=== PATIENT | male | born 1950 | race Caucasian/White ===

== ENCOUNTER 2017-05-15 17:24 | Observation (INO) ==
[2017-05-15] MEDS ORDERED: ACETAMINOPHEN 325 MG TABLET PO ONE (17:49)
--- NOTE | 2017-05-15 17:51 | Emergency Department Note ---
Fever HPI - General Chief Complaint: Fever Stated Complaint: Fever Time Seen by Provider: 05/15/17 17:34 Source: patient Mode of arrival: ambulatory Limitations: no limitations - History of Present Illness HPI Narrative: 66-year-old male presents with fever. He had an endoscopy done today due to a GI bleed and aspirated during his procedure. He had a chest x-ray earlier and it was clear that they told him to make sure that if he had a fever to come back. He denies any nausea vomiting or any more black stools. He has not vomited at all. He feels crummy and lethargic. He denies any chest pain or shortness of breath. He has been coughing but has not coughed anything up. He states the chills have gotten better and they started a few hours ago. No other symptoms. - Related Data Home Medications Medication Instructions Recorded Confirmed Aspirin [[place] Aspirin] 81 mg PO DAILY 04/19/15 05/15/17 Gluc Moya/Chondro Moya A/Vit C/Mn 1 each PO DAILY 04/19/15 05/15/17 [Glucosamine 1,500 Complex Cp] Irbesartan [Avapro] 300 mg PO DAILY 04/19/15 05/15/17 Irbesartan/Hydrochlorothiazide 1 each PO DAILY 04/19/15 05/15/17 [Avalide 150-12.5 mg Tablet] Magnesium Oxide [Magox 400] 400 mg PO DAILY 04/19/15 05/15/17 Potassium Citrate [Potassium 10 meq PO DAILY 04/19/15 05/15/17 Citrate ER] Ranitidine HCl [Zantac] 300 mg PO QHS 05/14/17 05/15/17 Allergies Allergy/AdvReac Type Severity Reaction Status Date / Time Latex, Natural Rubber Allergy Mild Rash Verified 05/15/17 17:29 Sulfa (Sulfonamide AdvReac Mild Itching Verified 05/15/17 17:29 Antibiotics) Review of Systems All systems ED: reviewed and negative except as stated. Fever PMH - Past Medical History Medical history: Reports: GI bleed (upper) Surgical history ED: Reports: other (EGD) Psychiatric history: Reports: no psych history Family history: Reports: no significant family history - Social History smoking status: Never smoker Physical Exam Limitations: no limitations General appearance: alert, in no apparent distress Head: atraumatic Eye: Present: normal appearance. Absent: conjunctival injection Neck: Present: normal inspection, full ROM Chest: Present: normal inspection, symmetric chest wall rise Respiratory: Present: normal lung sounds bilaterally Cardiovascular: Present: tachycardia, normal heart sounds Abdominal: Present: soft, normal bowel sounds. Absent: tenderness Extremities: Present: normal inspection, full ROM Neurological: Present: alert, oriented X3 Psychiatric: Present: normal affect, normal mood Skin: Present: warm, dry, intact Course Course Narrative: He will be admitted for further evaluation and monitoring Given IV fluids and Zosyn Vital Signs Temperature 100.8 F H 05/15/17 17:25 Pulse Rate 123 H 05/15/17 17:25 Respiratory Rate 20 05/15/17 17:25 Blood Pressure 143/89 05/15/17 17:25 Pulse Oximetry (%) 96 05/15/17 17:25 Temperature 98.8 F 05/15/17 20:51 Pulse Rate 105 H 05/15/17 20:51 Respiratory Rate 16 05/15/17 20:51 Blood Pressure 138/91 05/15/17 20:51 Pulse Oximetry (%) 98 05/15/17 20:51 Fever - Lab Data Lab results reviewed: Yes I reviewed the patient's lab results. Result diagrams: 05/15/17 18:10 05/15/17 18:10 Lab Results 05/15/17 05/15/17 05/15/17 Range/Units 18:03 18:10 18:10 WBC 19.3 H (4.5-11.0) K/mcL RBC 4.86 (4.50-5.90) M/mcL Hgb 14.8 (13.5-16.5) g/dL Hct 43.8 (41.0-55.0) % MCV 90.1 (80.0-100.0) fL MCH 30.5 (26.0-34.0) pg MCHC 33.8 (31.0-36.0) g/dL RDW 13.5 (11.5-14.5) % Plt Count 240 (140-440) K/mcL MPV 9.4 (7.4-10.4) fL Total Counted 100 Seg Neutrophils % 91 H (38-78) % Band Neutrophils % 3 (0-10) % Lymphocytes % 2 L (15-49) % Monocytes % (Manual) 3 (1-12) % Metamyelocytes % 1 H (0-0) % Platelet Estimate Normal (NORMAL) RBC Morphology Normal (NORMAL) VBG Lactic Acid 3.0 H (0.5-2.2) mmol/L Sodium 137 (133-145) mmol/L Potassium 3.6 (3.3-5.1) mmol/L Chloride 98 (96-108) mmol/L Carbon Dioxide 23 (22-30) mmol/L Anion Gap 16.0 (8-16) BUN 31 H (8-23) mg/dl Creatinine 1.5 H (0.7-1.2) mg/dl GFR Calculation 47 Glucose 179 H (70-105) mg/dL Calcium 9.2 (8.6-10.4) mg/dl Total Bilirubin 0.4 (0.0-1.0) mg/dL AST 23 (0-37) U/l ALT 22 (0-40) U/l Alkaline Phosphatase 51 (39-117) U/L Troponin T (0-0.03) ng/ml Total Protein 7.0 (5.9-8.4) gm/dL Albumin 4.4 (3.2-5.2) gm/dL Globulin 2.6 (2.2-3.7) gm/dL Albumin/Globulin Ratio 1.7 (1.0-2.3) Urine Color Urine Appearance Urine pH (5.0-9.0) Ur Specific [place] (1.000-1.035) Urine Protein (NEG) mg/dL Urine Glucose (UA) (NEG) mg/dL Urine Ketones (NEG) mg/dL Urine Occult Blood (<0.03) mg/dL Urine Nitrate (NEG) Urine Bilirubin (NEG) mg/dL Urine Urobilinogen (NEG) mg/dL Ur Leukocyte Esterase (NEG) /uL Urine RBC (0-1) /hpf Urine WBC (0-4) /hpf Ur Squamous Epith Cells (0-4) /hpf Urine Bacteria (0) /hpf Urine Mucus (0) /hpf Ur Culture Indicated? 05/15/17 05/15/17 Range/Units 18:10 19:10 WBC (4.5-11.0) K/mcL RBC (4.50-5.90) M/mcL Hgb (13.5-16.5) g/dL Hct (41.0-55.0) % MCV (80.0-100.0) fL MCH (26.0-34.0) pg MCHC (31.0-36.0) g/dL RDW (11.5-14.5) % Plt Count (140-440) K/mcL MPV (7.4-10.4) fL Total Counted Seg Neutrophils % (38-78) % Band Neutrophils % (0-10) % Lymphocytes % (15-49) % Monocytes % (Manual) (1-12) % Metamyelocytes % (0-0) % Platelet Estimate (NORMAL) RBC Morphology (NORMAL) VBG Lactic Acid (0.5-2.2) mmol/L Sodium (133-145) mmol/L Potassium (3.3-5.1) mmol/L Chloride (96-108) mmol/L Carbon Dioxide (22-30) mmol/L Anion Gap (8-16) BUN (8-23) mg/dl Creatinine (0.7-1.2) mg/dl GFR Calculation Glucose (70-105) mg/dL Calcium (8.6-10.4) mg/dl Total Bilirubin (0.0-1.0) mg/dL AST (0-37) U/l ALT (0-40) U/l Alkaline Phosphatase (39-117) U/L Troponin T < 0.01 (0-0.03) ng/ml Total Protein (5.9-8.4) gm/dL Albumin (3.2-5.2) gm/dL Globulin (2.2-3.7) gm/dL Albumin/Globulin Ratio (1.0-2.3) Urine Color Straw Urine Appearance Clear Urine pH 5.0 (5.0-9.0) Ur Specific [place] 1.019 (1.000-1.035) Urine Protein Neg (NEG) mg/dL Urine Glucose (UA) Negative (NEG) mg/dL Urine Ketones Neg (NEG) mg/dL Urine Occult Blood Neg (<0.03) mg/dL Urine Nitrate Neg (NEG) Urine Bilirubin Neg (NEG) mg/dL Urine Urobilinogen Neg (NEG) mg/dL Ur Leukocyte Esterase Neg (NEG) /uL Urine RBC 0 (0-1) /hpf Urine WBC < 1 (0-4) /hpf Ur Squamous Epith Cells 0 (0-4) /hpf Urine Bacteria 0 (0) /hpf Urine Mucus Few (0) /hpf Ur Culture Indicated? No - Radiology Data Radiology results reviewed: Yes I reviewed the patient's radiology results. No interval change - EKG Data EKG attestation: Yes I reviewed and interpreted this EKG. EKG results narrative: Sinus tachycardia, short NV interval, No signs of ischemia. It does read it as ischemia but Dr. Mistry and I reviewed it and do not agree. He has no symptoms at all of chest pain or shortness of breath Disposition Pt seen by DIRECTOR OF CASEWORK/PA only: Yes Clinical Impression: Sepsis, Fever postop Disposition: Xfer As Inpt ([facility]) Condition: Fair
[2017-05-15] MEDS ORDERED: 0.9 % SODIUM CHLORIDE 1,000 ML IV ONE (17:52)
[2017-05-15] MEDS ORDERED: PIPERACILLIN SODIUM/TAZOBACTAM 3.375 GM in DEXTROSE 5% IN WATER 50 ML IV ONE (18:23)
[2017-05-15 18:41] LABS: Mean Cell Volume 90.1 fL (80.0-100.0); Mean Corpuscular HGB Conc 33.8 g/dL (31.0-36.0); Mean Corpuscular Hemoglobin 30.5 pg (26.0-34.0); Platelet Count 240 K/mcL (140-440); RBC 4.86 M/mcL (4.50-5.90); Red Cell Distribution Width 13.5 % (11.5-14.5)
[2017-05-15] MEDS ORDERED: PIPERACILLIN SODIUM/TAZOBACTAM 3.375 GM VIAL IV ONE (18:41)
--- NOTE | 2017-05-15 18:41 | XRay Report ---
INDICATION: Previous endoscopy. Chest pain. TECHNIQUE: PA and lateral upright chest x-ray COMPARISON: 05/15/2017, 1225. FINDINGS:Lungs are negative. No parenchymal infiltrate or mass. No focal abnormality. Heart size and mediastinum are normal. Vascularity is normal. No pneumomediastinum. No pneumothorax. No pleural fluid. IMPRESSION: 1. Negative PA and lateral chest x-ray. 2. No interval change since 05/15/2017, 1225. Interpreted and Authenticated by: Jose Selby 05/15/17
[2017-05-15 19:00] LABS: ALT/SGPT 22 U/l (0-40); Albumin 4.4 gm/dL (3.2-5.2); Albumin/Globulin Ratio 1.7 (1.0-2.3); Alkaline Phosphatase 51 U/L (39-117); Blood Urea Nitrogen 31 mg/dl (8-23)
[2017-05-15 19:08] LABS: Band Neutrophils % 3 % (0-10); Lymphocytes % 2 % (15-49); Metamyelocytes % 1 % (0-0); Monocytes % (Manual) 3 % (1-12); Platelet Estimate NORMAL (NORMAL); RBC Morphology NORMAL (NORMAL); Segmented Neutrophils % 91 % (38-78)
[2017-05-15 20:19] LABS: Appearance,Urine CLEAR; Bacteria,Urine 0 /hpf (0); Bilirubin,Urine NEG (NEG); Color,Urine STRAW; Glucose,Urine (UA) NEGATIVE (NEG); Leukocyte Esterase,Urine NEG /uL (NEG); Mucus,Urine FEW /hpf (0); Nitrate,Urine NEG (NEG); Protein,Urine NEG (NEG); Specific Gravity,Urine 1.019 (1.000-1.035); Urine Blood NEG mg/dL (<0.03); Urine RBC 0 /hpf (0-1); Urine Squamous Epithelial Cell 0 /hpf (0-4); Urine WBC < 1 /hpf (0-4); Urobilinogen,Urine NEG (NEG)
[2017-05-15] MEDS ORDERED: ONDANSETRON 4 MG/2 ML VIAL IV PRN (20:54)
[2017-05-15] MEDS ORDERED: ACETAMINOPHEN 325 MG TABLET PO PRN (20:54)
[2017-05-15] MEDS: 0.9 % SODIUM CHLORIDE 10 ML SYRINGE IV SCH (23:42)
--- NOTE | 2017-05-15 23:42 | Internal Med History&Physical ---
Medical - H&P: HPI Patient information: Note initiated : 05/15/17 at 11:42 pm Service Date, if different from initiated Date: [] Patient: Vipul Amaral 66 y/o M admitted on 05/15/17 for Fever. Chief Complaint: weakness and fever 66-year-old male, s/p EGD to address melena after routine EGD with gastric polyp removal the day prior. Patient reportedly had emesis when he was sedated. After the procedure he felt weak and had subjective fever and some coughing. Patient has longstanding complaints of GERD and has been on omeprazole, recently switched to ranitidine, for many years. He is doing well otherwise, denies CP, SOB, problems with voiding or BMs. History of present illness: Mr. Amaral is a 66 year old M All systems: reviewed and no additional remarkable complaints except as stated Medical - H&P: PMH Medical history: GERD, PROSTATE CANCER Functional capacity: independent ambulation Smoking status: Never smoker Drug use: none Alcohol use: rarely Medical - H&P: Meds Home Medications Medication Instructions Recorded Confirmed Type Aspirin [[place] Aspirin] 81 mg PO DAILY 04/19/15 05/15/17 History Gluc Moya/Chondro Moya A/Vit C/Mn 1 tab PO DAILY 04/19/15 05/15/17 History [Glucosamine 1,500 Complex Cp] Magnesium Oxide [Magox 400] 400 mg PO DAILY 04/19/15 05/15/17 History Potassium Citrate [Potassium 10 meq PO DAILY 04/19/15 05/15/17 History Citrate ER] Ranitidine HCl [Zantac] 300 mg PO DAILY 05/14/17 05/15/17 History Cholecalciferol (Vitamin D3) 4,000 unit PO DAILY 05/15/17 05/15/17 History [Vitamin D3] Garlic [Odor Free Garlic-X] 1 each PO DAILY 05/15/17 05/15/17 History Irbesartan-Hctz 300-12.5 mg Tb 1 tab PO DAILY 05/15/17 05/15/17 History RX: Multivitamin [One Daily] 1 tab PO DAILY 05/15/17 05/15/17 History Allergies Allergy/AdvReac Type Severity Reaction Status Date / Time ciprofloxacin Allergy Severe Other Verified 05/15/17 21:06 Latex, Natural Rubber Allergy Mild Rash Verified 05/15/17 17:29 Sulfa (Sulfonamide AdvReac Mild Itching Verified 05/15/17 17:29 Antibiotics) Medical - H&P: Exam - Constitutional Vitals: Temp Pulse Resp BP Pulse Ox 98.8 F 105 H 16 138/91 98 05/15/17 20:51 05/15/17 20:51 05/15/17 20:51 05/15/17 20:51 05/15/17 20:51 General appearance: no acute distress - Head Head exam: Present: normal inspection - Eye Eye exam: Present: EOMI, PERRL - Respiratory Respiratory exam: Present: normal respiratory exam - Cardiovascular Cardiovascular exam: Present: normal rate and rhythm - GI/Abdominal GI/Abdominal exam: Present: normal bowel sounds, soft - Rectal Rectal exam: Present: deferred - Extremities Exam Extremities exam: Present: normal inspection Medical - H&P: Reslt - Labs CBC & Chem 7: 05/15/17 18:10 05/15/17 18:10 Labs: Short CBC 05/15/17 Range/Units 18:10 WBC 19.3 H (4.5-11.0) K/mcL Hgb 14.8 (13.5-16.5) g/dL Hct 43.8 (41.0-55.0) % Plt Count 240 (140-440) K/mcL BMP 05/15/17 18:10 Sodium 137 Potassium 3.6 Chloride 98 Carbon Dioxide 23 BUN 31 H Creatinine 1.5 H Glucose 179 H Calcium 9.2 Cardiac Enzymes 05/15/17 Range/Units 18:10 Troponin T < 0.01 (0-0.03) ng/ml Liver Function 05/15/17 Range/Units 18:10 Total Bilirubin 0.4 (0.0-1.0) mg/dL AST 23 (0-37) U/l ALT 22 (0-40) U/l Alkaline Phosphatase 51 (39-117) U/L Albumin 4.4 (3.2-5.2) gm/dL Urine 05/15/17 Range/Units 19:10 Urine Color Straw Urine Appearance Clear Urine pH 5.0 (5.0-9.0) Ur Specific [place] 1.019 (1.000-1.035) Urine Protein Neg (NEG) mg/dL Urine Glucose (UA) Negative (NEG) mg/dL Medical - H&P: A/P - Narrative A/P Narrative: 66-YEAR-OLD MALE PRESENTED 05/15 WITH THE FOLLOWING PROBLEMS: + ASPIRATION PNEUMONITIS/PNEUMONIA Bloody emesis during EGD procedure Started on Zosyn in ED. Will continue as Unasyn in not in formulary + GERD continue Ranitidine + GASTRIC POLYPS Incidental finding on routine EGD 05/14, Biopsy result pending + Hx of prostate cancer stable DISPO: d/c home in am when stable Medical - H&P: Qual - Stroke Symptom Onset Unknown: No - VTE Deep Vein Thrombosis/Pulmonary Embolism Present on Admission: No
[2017-05-16] MEDS ORDERED: PIPERACILLIN SODIUM/TAZOBACTAM 3.375 GM in DEXTROSE 5% IN WATER 50 ML IV SCH
[2017-05-16 04:56] LABS: Mean Cell Volume 91.7 fL (80.0-100.0); Mean Corpuscular HGB Conc 33.7 g/dL (31.0-36.0); Mean Corpuscular Hemoglobin 30.9 pg (26.0-34.0); Platelet Count 202 K/mcL (140-440); RBC 4.18 M/mcL (4.50-5.90); Red Cell Distribution Width 13.3 % (11.5-14.5)
[2017-05-16] MEDS: 0.9 % SODIUM CHLORIDE 10 ML SYRINGE IV SCH (05:58)
[2017-05-16 06:08] LABS: Blood Urea Nitrogen 24 mg/dl (8-23)
[2017-05-16 06:23] LABS: Band Neutrophils % 8 % (0-10); Eosinophils % (Manual) 2 % (0-7); Lymphocytes % 11 % (15-49); Monocytes % (Manual) 7 % (1-12); Platelet Estimate NORMAL (NORMAL); RBC Morphology NORMAL (NORMAL); Segmented Neutrophils % 72 % (38-78)
[2017-05-16] MEDS ORDERED: POTASSIUM CITRATE 10 MEQ TAB.XL.24H PO SCH (08:00)
[2017-05-16] MEDS ORDERED: ASPIRIN 81 MG TAB.CHEW PO SCH (09:00)
[2017-05-16] MEDS ORDERED: LOSARTAN 50 MG TABLET PO SCH (09:00)
[2017-05-16] MEDS ORDERED: MAGNESIUM OXIDE 400 MG TABLET PO SCH (09:00)
--- NOTE | 2017-05-16 13:37 | Discharge Summary ---
Medical - DS: Prov Patient information: Note initiated : 05/16/17 at 1:33 pm Service Date, if different from initiated Date: [] Patient: Vipul Amaral 66 y/o M admitted on 05/15/17 for Fever. Date of admission: 05/15/17 20:48 Discharge date: 05/16/17 Consults: 05/15/17 19:37 Consult to Physician [CONS] Stat Comment: Consulting Provider: Padmini Maher Reason For Exam: Physician to Consult Medical - DS: Meds - Discharge Medications Active and Home Medications: Home Medications Aspirin [[place] Aspirin] 81 mg PO DAILY 04/19/15 [History Confirmed Last Taken 05/15/17 08:00] Gluc Moya/Chondro Moya A/Vit C/Mn [Glucosamine 1,500 Complex Cp] 1 tab PO DAILY [History Confirmed 05/15/17 Last Taken 05/15/17 08:00] Magnesium Oxide [Magox 400] 400 mg PO DAILY 04/19/15 [History Confirmed Last Taken 05/15/17 08:00] Potassium Citrate [Potassium Citrate ER] 10 meq PO DAILY 04/19/15 [History Confirmed 05/15/17 Last Taken 05/15/17 08:00] Ranitidine HCl [Zantac] 300 mg PO DAILY 05/14/17 [History Confirmed 05/15/17 Last Taken 05/15/17 08:00] Cholecalciferol (Vitamin D3) [Vitamin D3] 4,000 unit PO DAILY 05/15/17 [History Confirmed 05/15/17 Last Taken 05/15/17 08:00] Garlic [Odor Free Garlic-X] 1 each PO DAILY 05/15/17 [History Confirmed Last Taken 05/15/17 08:00] Irbesartan-Hctz 300-12.5 mg Tb 1 tab PO DAILY 05/15/17 [History Confirmed Last Taken 05/15/17 08:00] RX: Multivitamin [One Daily] 1 tab PO DAILY 05/15/17 [History Confirmed Last Taken 05/15/17 08:00] Medical - DS: Hosp Hospital course: 66-YEAR-OLD MALE PRESENTED 05/15 WITH THE FOLLOWING PROBLEMS: + ASPIRATION PNEUMONITIS/PNEUMONIA Bloody emesis during EGD procedure Started on Zosyn in ED. + GERD continue Ranitidine + GASTRIC POLYPS Incidental finding on routine EGD 05/14, Biopsy result pending + Hx of prostate cancer stable Hospital course: Patient has remained stable and afebrile during hospital stay and he feels that he is 'back to normal'. WBC down to 13 from 19. He will be discharged on Augmentin and to continue his usual meds. Discharge diagnosis: ASPIRATION PNEUMONITIS Secondary discharge diagnosis: GERD Reason for admission: ASPIRATION PNEUMONITIS FOLLOWING EGD - Time Spent with Patient Total time spent providing and/or coordinating discharge services: Less than 30 minutes Medical - DS: Exam - Constitutional Vitals: Vital Signs Temp Pulse Pulse Resp BP BP BP 05/16/17 12:00 97.6 F 16 120/78 05/16/17 06:31 98.5 F 16 122/73 05/16/17 03:58 98.1 F 80 18 119/74 05/15/17 23:47 98.6 F 92 H 18 131/70 05/15/17 20:51 98.8 F 105 H 16 138/91 05/15/17 20:50 98.5 F 99 H 18 131/83 05/15/17 20:36 105 H 16 138/91 05/15/17 20:01 103 H 14 139/96 05/15/17 19:35 98.8 F 05/15/17 19:31 104 H 14 128/81 05/15/17 19:13 98.5 F 05/15/17 19:10 110 H 18 120/79 05/15/17 19:05 110 H 17 148/111 05/15/17 18:28 100.8 F H 05/15/17 17:25 100.8 F H 123 H 20 143/89 Pulse Ox 05/16/17 12:00 95 05/16/17 06:31 97 05/16/17 03:58 95 05/15/17 23:47 95 05/15/17 20:51 98 05/15/17 20:50 98 05/15/17 20:36 98 05/15/17 20:01 98 05/15/17 19:35 05/15/17 19:31 96 05/15/17 19:13 05/15/17 19:10 94 05/15/17 19:05 94 05/15/17 18:28 05/15/17 17:25 96 Intake and Output 05/15/17 05/16/17 05/16/17 21:59 05:59 13:59 Intake Total 1000 / 1000 770 / 770 Output Total 825 / 825 200 / 200 Balance 1000 / 1000 -55 / -55 -200 / -200 Intake: IV 1000 / 1000 50 / 50 Zosyn 3.375 gm In Dextrose 5% 50 / 50 in Water 50 ml @ 100 mls/hr IV Q6H RAEANN Rx#:[id number] Oral 720 / 720 Output: Void Amount 825 / 825 200 / 200 Other: # Voids 2 1 Weight 229 lb 8 oz Medical - DS: Data Labs on day of discharge: Labs from last 24 hours 05/16/17 05/16/17 05/15/17 03:57 03:57 19:10 WBC 13.9 H RBC 4.18 L Hgb 12.9 L Hct 38.3 L MCV 91.7 MCH 30.9 MCHC 33.7 RDW 13.3 Plt Count 202 MPV 9.6 Total Counted 100 Seg Neutrophils % 72 Band Neutrophils % 8 Lymphocytes % 11 L Monocytes % (Manual) 7 Eosinophils % (Manual) 2 Metamyelocytes % Platelet Estimate Normal RBC Morphology Normal VBG Lactic Acid Sodium 140 Potassium 3.7 Chloride 102 Carbon Dioxide 22 Anion Gap 16.0 BUN 24 H Creatinine 1.2 GFR Calculation 62 Glucose 120 H Calcium 8.4 L Total Bilirubin AST ALT Alkaline Phosphatase Troponin T Total Protein Albumin Globulin Albumin/Globulin Ratio Urine Color Straw Urine Appearance Clear Urine pH 5.0 Ur Specific [place] 1.019 Urine Protein Neg Urine Glucose (UA) Negative Urine Ketones Neg Urine Occult Blood Neg Urine Nitrate Neg Urine Bilirubin Neg Urine Urobilinogen Neg Ur Leukocyte Esterase Neg Urine RBC 0 Urine WBC < 1 Ur Squamous Epith Cells 0 Urine Bacteria 0 Urine Mucus Few Ur Culture Indicated? No 05/15/17 05/15/17 05/15/17 18:10 18:10 18:10 WBC 19.3 H RBC 4.86 Hgb 14.8 Hct 43.8 MCV 90.1 MCH 30.5 MCHC 33.8 RDW 13.5 Plt Count 240 MPV 9.4 Total Counted 100 Seg Neutrophils % 91 H Band Neutrophils % 3 Lymphocytes % 2 L Monocytes % (Manual) 3 Eosinophils % (Manual) Metamyelocytes % 1 H Platelet Estimate Normal RBC Morphology Normal VBG Lactic Acid Sodium 137 Potassium 3.6 Chloride 98 Carbon Dioxide 23 Anion Gap 16.0 BUN 31 H Creatinine 1.5 H GFR Calculation 47 Glucose 179 H Calcium 9.2 Total Bilirubin 0.4 AST 23 ALT 22 Alkaline Phosphatase 51 Troponin T < 0.01 Total Protein 7.0 Albumin 4.4 Globulin 2.6 Albumin/Globulin Ratio 1.7 Urine Color Urine Appearance Urine pH Ur Specific [place] Urine Protein Urine Glucose (UA) Urine Ketones Urine Occult Blood Urine Nitrate Urine Bilirubin Urine Urobilinogen Ur Leukocyte Esterase Urine RBC Urine WBC Ur Squamous Epith Cells Urine Bacteria Urine Mucus Ur Culture Indicated? 05/15/17 18:03 WBC RBC Hgb Hct MCV MCH MCHC RDW Plt Count MPV Total Counted Seg Neutrophils % Band Neutrophils % Lymphocytes % Monocytes % (Manual) Eosinophils % (Manual) Metamyelocytes % Platelet Estimate RBC Morphology VBG Lactic Acid 3.0 H Sodium Potassium Chloride Carbon Dioxide Anion Gap BUN Creatinine GFR Calculation Glucose Calcium Total Bilirubin AST ALT Alkaline Phosphatase Troponin T Total Protein Albumin Globulin Albumin/Globulin Ratio Urine Color Urine Appearance Urine pH Ur Specific [place] Urine Protein Urine Glucose (UA) Urine Ketones Urine Occult Blood Urine Nitrate Urine Bilirubin Urine Urobilinogen Ur Leukocyte Esterase Urine RBC Urine WBC Ur Squamous Epith Cells Urine Bacteria Urine Mucus Ur Culture Indicated? Medical - DS: A/P - Patient/Caregiver Discharge Instructions Activity: increase activity as tolerated Diet: Regular Diet - Follow up Plan Disposition: Home, Self-Care Prognosis: Good Rehab Potential: Good Overall status at discharge: patient is back to baseline Medical - DS: Qual - VTE Deep Vein Thrombosis/Pulmonary Embolism Present on Admission: No
[2017-05-16] MEDS ORDERED: FAMOTIDINE 20 MG TABLET PO SCH (21:00)
== END 2017-05-16 14:18 | disposition home or self-care (01) ==
LOC: ED 17:24 → MEDSUR 17:24
PROVIDERS: ADMIT Specialist; ATTEND Specialist